=== PATIENT | female | born 1985 | race African-American/Black ===

== ENCOUNTER 2016-12-12 06:29 | Emergency (ER) | payer OTHER ==
[2016-12-12 06:53] VITALS: BMI 16.2
--- NOTE | 2016-12-12 08:05 | PDOC ---
History of Present Illness - General Chief Complaint: Cold Symptoms Stated Complaint: FEVER Time Seen by Provider: 12/12/16 07:42 History Source: Patient Exam Limitations: No Limitations - History of Present Illness Initial Comments: CHIEF COMPLAINT: 31 y/o afebrile female with PMH asthma c/o "not feeling well". HISTORY OF PRESENT ILLNESS: The patient just came from [facility] where she was told she had a 104 fever, was given nothing for fever, and was provided with HIV screening paperwork in the waiting room so she left and came here. She is under the impression they tested her for HIV at [facility] although she admits she was not swabbed for anything. She states she felt very warm this morning, although she does not have a fever here. She states she's had a decreased appetite for the past few days, with very mild cough and runny nose. She denies HUIZAR, neck pain, n/v/d, CP, SOB, abd pain, back pain, hematuria, dysuria. The patient had the flu shot in August and denies sick contacts. She does admit to having Pneumonia at the end of September, for which she was admitted to [facility]. Vital signs on arrival are notable for pulse of 118. REVIEW OF SYSTEMS: GENERAL/CONSTITUTIONAL: Subjective fever/chills. No weakness. No weight change. HEAD, EYES, EARS, NOSE AND THROAT: No change in vision. No ear pain or discharge. No sore throat. +slight runny nose. CARDIOVASCULAR: No chest pain or shortness of breath. RESPIRATORY: +dry cough. No wheezing, or hemoptysis. GASTROINTESTINAL: No nausea, vomiting, diarrhea. GENITOURINARY: No dysuria, frequency, or change in urination. MUSCULOSKELETAL: No joint or muscle swelling or pain. No neck or back pain. SKIN: No rash or easy bruising. NEUROLOGIC: No headache, vertigo, loss of consciousness, or loss of sensation. PHYSICAL EXAM: GENERAL: The patient is awake, alert, and fully oriented, in no acute distress. She is very well appearing, ambulatory, in NAD or obvious discomfort. No cough appreciated throughout H&P. HEAD: Normal with no signs of trauma. ENT: Pupils equal, round and reactive to light, extraocular movements intact, sclera anicteric, conjunctiva clear. Neck supple. LUNGS: Clear to auscultation bilaterally. Normal excursion. No respiratory distress or use of accessory muscles. CV: RRR, S1/S2, no MRG. Cap refill < 2 sec. ABDOMEN: Soft, non-distended, non-tender even to deep palpation, no hepatomegaly or splenomegaly, no masses. EXTREMITIES: Normal range of motion, no edema. NEUROLOGICAL: Normal speech, normal gait. CN II-XII grossly intact. PSYCH: Normal mood, normal affect. SKIN: Warm, dry, normal turgor, no rashes or lesions noted. Past History - Past Medical History Allergies/Adverse Reactions: Allergies Allergy/AdvReac Type Severity Reaction Status Date / Time No Known Allergies Allergy Verified 12/12/16 06:47 Home Medications: Ambulatory Orders Fluoxetine HCl [Prozac] 20 mg PO AM 10/18/16 Asthma: Yes Psychiatric Problems: Yes (Depression) - Psycho/Social/Smoking Cessation Hx Suicidal Ideation: No Smoking History: Former smoker Have you smoked in the past 12 months: No Number of Cigarettes Smoked Daily: 5 Information on smoking cessation initiated: No Hx Alcohol Use: No Drug/Substance Use Hx: Yes (marjuana) Substance Use Type: None *Physical Exam - Vital Signs Last Vital Signs Temp Pulse Resp BP Pulse Ox 99.1 F 118 H 12 146/105 100 12/12/16 06:48 12/12/16 06:48 12/12/16 06:48 12/12/16 06:48 12/12/16 06:48 Medical Decision Making - Medical Decision Making A/P: 31 y/o female who states she "doesn't feel well" and wants HIV test. Plan is as follows: 1. UA/hcg/tox 2. CXR 3. HIV 4. Ibuprofen CXR IMPRESSION: No active disease in the chest. U tox positive for marijuana and PCP HIV negative Gave patient her results. Will discharge to home with supportive care instructions. The patient verbalizes understanding of all instructions, has no further questions and is awaiting discharge. *DC/Admit/Observation/Transfer Diagnosis at time of Disposition: Encounter for screening examination for sexually transmitted disease, Worried well - Discharge Dispostion Disposition: HOME Condition at time of disposition: Good - Referrals Referrals: Elo Cheney [Primary Care Provider] - - Patient Instructions Additional Instructions: Discharge Instructions: -Your HIV test was negative -Please follow up with your regular doctor if symptoms persist -Return to the ER with any worsening or concerning symptoms.
[2016-12-12 09:00] LABS: URINE APPEARANCE CLEAR; URINE BILIRUBIN NEGATIVE (NEGATIVE); URINE COLOR YELLOW; URINE GLUCOSE (UA) NEGATIVE (NEGATIVE); URINE KETONE TRACE (NEGATIVE); URINE LEUK ESTERASE NEGATIVE (NEGATIVE); URINE NITRITE NEGATIVE (NEGATIVE); URINE UROBILINOGEN 2.0 E.U/dl E.U./dl (0.2-1.0)
[2016-12-12 09:07] LABS: URINE MARIJUANA THC POSITIVE ng/ml (CUTOFF=50)
[2016-12-12 09:08] LABS: URINE BLOOD 3+ (NEGATIVE); URINE PROTEIN 2+ (NEGATIVE)
[2016-12-12] MEDS ORDERED: IBUPROFEN 600 MG TABLET (FP) PO ONE ×2 (09:08→09:11)
[2016-12-12 09:11] LABS: URINE MUCUS MANY; URINE RBC 304 /hpf (0-3); URINE WBC 12 /hpf (3-5)
[2016-12-12 09:49] LABS: HIV 1 & 2 AB NEGATIVE; HIV 1 AGp24 NEGATIVE
[2016-12-12 10:29] VITALS: BP 128/78; PULSE 89; TEMP 98.7
== END 2016-12-12 10:28 | disposition home or self-care (01) ==
LOC: JER 06:29
DX: Z11.3 Encounter for screening for infections with a predominantly sexual mode of transmission (principal); Z71.1 Person with feared health complaint in whom no diagnosis is made; Z87.891 Personal history of nicotine dependence
CPT/HCPCS: 36415; 71020-TC; 80307; 81003; 81015; 84703; 87389; 99281-25

== ENCOUNTER 2017-02-08 15:15 | Observation (INO) | payer OTHER ==
[2017-02-08 15:36] VITALS: BMI 21.2
--- NOTE | 2017-02-08 16:22 | PDOC ---
History of Present Illness - General History Source: Patient - History of Present Illness Associated Symptoms: denies: chest pain, diaphoresis, fever/chills, nausea/ vomiting, shortness of breath, weakness <Jason Alfaro - Last Filed: 02/09/17 15:19> <Marisabel Poon - Last Filed: 02/11/17 07:27> - General Chief Complaint: Psychiatric Stated Complaint: PSYCHIATRIC Time Seen by Provider: 02/08/17 15:51 Past History - Past Medical History Asthma: Yes Psychiatric Problems: Yes (Depression/ Bipolar/ PSTD) - Immunization History Immunization Up to Date: Yes - Psycho/Social/Smoking Cessation Hx Suicidal Ideation: No Smoking History: Current every day smoker Have you smoked in the past 12 months: No Number of Cigarettes Smoked Daily: 10 Information on smoking cessation initiated: No Hx Alcohol Use: No Drug/Substance Use Hx: No Substance Use Type: None <Jason Alfaro - Last Filed: 02/09/17 15:19> <Marisabel Poon - Last Filed: 02/11/17 07:27> - Past Medical History Allergies/Adverse Reactions: Allergies Allergy/AdvReac Type Severity Reaction Status Date / Time No Known Allergies Allergy Verified 02/08/17 15:26 Home Medications: Ambulatory Orders Fluoxetine HCl [Prozac] 20 mg PO AM 10/18/16 Cyclobenzaprine HCl [Flexeril 10 mg] 10 mg PO HS 02/08/17 Quetiapine Fumarate [Seroquel] 300 mg PO HS 02/08/17 Review of Systems - Review of Systems Constitutional: No: Chills, Fever Respiratory: No: Shortness of Breath Cardiac (ROS): No: Chest Pain, Lightheadedness, Palpitations ABD/GI: No: Nausea, Vomiting, Abdominal cramping Neurological: No: Headache, Dizziness <Jason Alfaro - Last Filed: 02/09/17 15:19> *Physical Exam - Vital Signs Last Vital Signs Temp Pulse Resp BP Pulse Ox 98.2 F 131 H 22 131/88 98 02/08/17 15:27 02/08/17 15:27 02/08/17 15:27 02/08/17 15:27 02/08/17 15:27 - Physical Exam General Appearance: Yes: Appropriately Dressed, Other (appears mildly anxious) HEENT: positive: Normal Voice Neck: positive: Supple Respiratory/Chest: positive: Lungs Clear, Normal Breath Sounds. negative: Respiratory Distress Cardiovascular: positive: S1, S2, Tachycardia Gastrointestinal/Abdominal: positive: Soft Integumentary: positive: Dry, Warm Neurologic: positive: Fully Oriented, Alert, Other (appears anxious) <Paula AlfaroDreYudith - Last Filed: 02/09/17 15:19> - Vital Signs Last Vital Signs Temp Pulse Resp BP Pulse Ox 99 F 85 18 116/71 99 02/10/17 15:27 02/10/17 15:27 02/10/17 18:00 02/10/17 14:00 02/09/17 19:35 <Marisabel Poon - Last Filed: 02/11/17 07:27> Heart Score/ECG Review - ECG Intrepretation Comment:: 02/08/17 18:28 Twelve-lead EKG was performed and reviewed by me. There is normal sinus rhythm with a normal rate. The axis is normal. The intervals are normal. There are no ST or T wave abnormalities. Impression: Normal twelve-lead EKG <AngelinaPaula-Yudith - Last Filed: 02/09/17 15:19> ED Treatment Course - LABORATORY CBC & Chemistry Diagram: 02/08/17 16:20 02/08/17 16:20 <Paula AlfaroDreYudith - Last Filed: 02/09/17 15:19> - LABORATORY CBC & Chemistry Diagram: 02/08/17 16:20 02/08/17 16:20 - ADDITIONAL ORDERS Additional order review: 02/08/17 16:20 RBC 4.34 MCV 86.7 MCHC 32.8 RDW 14.2 MPV 8.3 Neutrophils % 51.1 D Lymphocytes % 39.3 D Monocytes % 8.3 D Eosinophils % 0.7 D Basophils % 0.6 - Medications Given in the ED: ED Medications Discontinued Medications Generic Name Dose Route Start Last Admin Trade Name Freq PRN Reason Stop Dose Admin Cyclobenzaprine HCl 10 mg 02/09/17 22:00 02/10/17 18:26 Flexeril - PO 10 mg HS REBECCA Administration Fluoxetine HCl 20 mg 02/09/17 09:57 02/09/17 10:17 Prozac - PO 02/09/17 09:58 Not Given ONCE ONE Fluoxetine HCl 20 mg 02/10/17 07:00 02/10/17 08:27 Prozac - PO 20 mg AM REBECCA Administration Heparin Sodium (Porcine) 5,000 unit 02/09/17 22:00 02/10/17 10:48 Heparin - SQ 5,000 unit BID REBECCA Administration Sodium Chloride 1,000 mls @ 1,000 mls/hr 02/08/17 16:23 02/08/17 16:48 Normal Saline - IV 02/08/17 17:22 1,000 mls/hr ASDIR STA Administration Ibuprofen 600 mg 02/10/17 14:38 02/10/17 14:50 Motrin - PO 02/10/17 14:39 600 mg ONCE ONE Administration Nicotine 14 mg 02/08/17 19:15 02/10/17 10:48 Nicoderm Patch - TD 14 mg DAILY REBECCA Administration Quetiapine Fumarate 300 mg 02/09/17 09:58 02/09/17 10:18 Seroquel - PO 02/09/17 09:59 Not Given ONCE ONE Quetiapine Fumarate 300 mg 02/09/17 22:00 02/09/17 21:50 Seroquel - PO 300 mg HS REBECCA Administration <Marisabel Poon - Last Filed: 02/11/17 07:27> Medical Decision Making - Medical Decision Making 02/08/17 16:15 31 yo F, h/o PTSD, depression, bipolar on meds, does not currently have a psychiatrist as per pt, s/p psych [facility] , p/w auditory hallucination x ~1 month. States voices are telling her to take all her medications. States sxs worsened today. Denies any attempt since recent admission. Has a cousin who committed suicide 2 years ago See exam 31 yo F, p/w auditory hallucinations telling pt to hurt herself High risk as multiple psych d/o w/ recent admission for suicidal attempt and + fmhx of suicide Mildly tachy at triage which self resolved, appears anxious, exam unremarkable otherwise -1:1 observation -labs including tox screen -psych c/s -anticipate admission 02/08/17 16:56 Psych aware and states will come see pt 02/08/17 17:29 Dr Rhodes now at bedside 02/08/17 17:[address] Rhodes who evaluated pt and recommended pt be discharged to report to Health system if she wishes to be admitted to in-pt psych. Pt however verbalized that she is afraid of being discharged and does not feel safe. Currently crying in ED. Based on my assessment of this pt being a high risk for harming herself, I, alongside my attg, decided to transfer pt to [facility] for further assessment by psych and m/l admission. 02/08/17 18:02 02/08/17 18:29 02/09/17 07:20 Pt signed out to me this am as transfer overnight unsuccessful as both [facility] and [facility] have no inpt psych beds available. Will contact briefcase sewer to assist in placing pt 02/09/17 09:31 02/09/17 10:15 Pt given dose of her own prozac and flexeril this am 02/09/17 14:18 02/09/17 15:19 After several hrs of attempting to find an available bed in an inpatient psych facility as per briefcase sewer, no beds available. Recommends admitting patient to observation at this time while team continue to find placement. Dr. Hopson aware and patient admitted to observation <Jason Alfaro - Last Filed: 02/09/17 15:19> *DC/Admit/Observation/Transfer - Discharge Dispostion Admit: Yes <Jason Alfaro - Last Filed: 02/09/17 15:19> - Attestations Physician Attestion: I reviewed the case with the mid-level practitioner and agree with the mid- level practitioner's assessment, diagnosis and disposition. <Marisabel Poon - Last Filed: 02/11/17 07:27> Diagnosis at time of Disposition: Suicide ideation, Auditory hallucination - Discharge Dispostion Disposition: [facility] Condition at time of disposition: Good - Referrals - Patient Instructions - Post Discharge Activity
[2017-02-08] MEDS ORDERED: SODIUM CHLORIDE 1,000 ML IV STA (16:23)
[2017-02-08 16:31] LABS: BASOPHIL 0.6 % (0-2.0); EOSINOPHIL 0.7 % (0-4.5); MCH 28.4 pg (25.7-33.7); MCHC 32.8 g/dl (32.0-36.0); MEAN CELL VOLUME 86.7 fl (80-96); MEAN PLT VOLUME 8.3 fl (7.5-11.1); NEUTROPHILS 51.1 % (42.8-82.8); PLATELET COUNT 230 K/MM3 (134-434); RDW 14.2 % (11.6-15.6); WHITE BLOOD COUNT 4.6 K/mm3 (4.0-10.0)
[2017-02-08 16:54] LABS: URINE APPEARANCE CLEAR; URINE BILIRUBIN NEGATIVE (NEGATIVE); URINE BLOOD NEGATIVE (NEGATIVE); URINE COLOR LTYELLOW; URINE GLUCOSE (UA) NEGATIVE (NEGATIVE); URINE KETONE NEGATIVE (NEGATIVE); URINE LEUK ESTERASE NEGATIVE (NEGATIVE); URINE NITRITE NEGATIVE (NEGATIVE); URINE PROTEIN NEGATIVE (NEGATIVE); URINE UROBILINOGEN NEGATIVE E.U./dl (0.2-1.0)
[2017-02-08 17:06] LABS: ALBUMIN 4.1 g/dl (3.4-5.0); ANION GAP 8 (8-16); BILIRUBIN,TOTAL 0.5 mg/dL (0.2-1.0); CALCIUM 8.9 mg/dL (8.5-10.1); CO2 31 mmol/L (21-32); CREATININE 0.7 mg/dL (0.55-1.02); GLUCOSE,RANDOM 101 mg/dL (74-106); SGOT/AST 10 U/L (15-37); SGPT/ALT 20 U/L (12-78)
[2017-02-08 17:07] LABS: ALK PHOS 62 U/L (45-117); TOT PROT 7.1 g/dl (6.4-8.2)
[2017-02-08 17:12] LABS: URINE MARIJUANA THC POSITIVE ng/ml (CUTOFF=50)
--- NOTE | 2017-02-08 17:45 | CON.PSY ---
Psychiatry Consult Chief Complaint: Patient came to ER complining about Hearing voices. she was admitted to psych at [facility] about a month ago. Seen her Psych at [facility] about a week ago. Urine positive for Marijuana and pcp.Patient does not want to go back to her apartment in [place],. She lived in the [place] before. Symptoms: reports: Hallucinations - Previous Psychiatric Treatment Outpatient: Less than 6 mos ago Inpatient: Within the last 12 months - Previous Substance Abuse Treatment Outpatient: None - Reason for Previous Treatment Reason for Previous Treatment: Psychotic Episode, Marijuana, Other Drugs - Allergies Allergies: Allergies Allergy/AdvReac Type Severity Reaction Status Date / Time No Known Allergies Allergy Verified 02/08/17 15:26 - Current Living Status Usual Living Arrangement: Alone - Current Mental Status Evaluation Appearance: Well Groomed Attitude: Cooperative - Affect Affect: Constrictive Appropriateness: Appropriate to Content - Mood Mood: Other - Speech/Language Expressive: Coherent Receptive: Age Appropriate Comprehension of Spoken Words - Psychomotor Activity Psychomotor Activity: Normal - Thought Process Thought Process: Intact - Thought Content Hallucinations: Present Type: Auditory Delusions: Absent - Self Perception Self Perception: No Impairment - Cognition Attention: Alert Orientation: Time Memory, Immediate Recall: Intact Memory, Short Term: 3/3 - Concentration Serial Sevens Intact: No Simple Calculations Intact: No - Abstraction Proverb Interpretation: Intact Judgement: Minimally Impaired - Insight Insight: Intact - Impulse Control Impulse Control: Minimally Impaired - Suicidal Ideation Suicidal Ideation: No - Homicidal Ideation Homicidal Ideation: No Assessment/Plan 1) Discharge patient from ER. 2) Return to [facility] for follow up. Patient is being treated there in OP department.
[2017-02-08] MEDS: NICOTINE 14 MG/24 HOURS TOPICAL PATCH TD SCH (20:00)
--- NOTE | 2017-02-08 20:57 | PDOC ---
*Physical Exam - Vital Signs Last Vital Signs Temp Pulse Resp BP Pulse Ox 98.2 F 98 H 19 131/88 100 02/08/17 15:27 02/08/17 17:00 02/08/17 17:00 02/08/17 15:27 02/08/17 17:00 ED Treatment Course - LABORATORY CBC & Chemistry Diagram: 02/08/17 16:20 02/08/17 16:20 - ADDITIONAL ORDERS Additional order review: Laboratory Results 02/08/17 02/08/17 02/08/17 16:30 16:20 16:20 Sodium Potassium Chloride Carbon Dioxide Anion Gap BUN Creatinine Creat Clearance w eGFR Random Glucose Calcium Total Bilirubin AST ALT Alkaline Phosphatase Total Protein Albumin Urine Color Ltyellow Urine Appearance Clear Urine pH 6.0 Ur Specific [place] 1.006 Urine Protein Negative Urine Glucose (UA) Negative Urine Ketones Negative Urine Blood Negative Urine Nitrite Negative Urine Bilirubin Negative Urine Urobilinogen Negative Ur Leukocyte Esterase Negative Salicylates < 4.0 Opiates Screen Methadone Screen Acetaminophen < 2.000 L Barbiturate Screen Phencyclidine Screen Ur Amphetamines Screen MDMA (Ecstasy) Screen Benzodiazepines Screen Cocaine Screen U Marijuana (THC) Screen 02/08/17 02/08/17 16:20 16:08 Sodium 140 Potassium 3.8 Chloride 101 Carbon Dioxide 31 D Anion Gap 8 BUN 7 D Creatinine 0.7 Creat Clearance w eGFR > 60 Random Glucose 101 Calcium 8.9 Total Bilirubin 0.5 D AST 10 L D ALT 20 D Alkaline Phosphatase 62 Total Protein 7.1 Albumin 4.1 Urine Color Urine Appearance Urine pH Ur Specific [place] Urine Protein Urine Glucose (UA) Urine Ketones Urine Blood Urine Nitrite Urine Bilirubin Urine Urobilinogen Ur Leukocyte Esterase Salicylates Opiates Screen Negative Methadone Screen Negative Acetaminophen Barbiturate Screen Negative Phencyclidine Screen Positive Ur Amphetamines Screen Negative MDMA (Ecstasy) Screen Negative Benzodiazepines Screen Negative Cocaine Screen Negative U Marijuana (THC) Screen Positive 02/08/17 16:20 RBC 4.34 MCV 86.7 MCHC 32.8 RDW 14.2 MPV 8.3 Neutrophils % 51.1 D Lymphocytes % 39.3 D Monocytes % 8.3 D Eosinophils % 0.7 D Basophils % 0.6 - Medications Given in the ED: ED Medications Discontinued Medications Generic Name Dose Route Start Last Admin Trade Name Freq PRN Reason Stop Dose Admin Sodium Chloride 1,000 mls @ 1,000 mls/hr 02/08/17 16:23 02/08/17 16:48 Normal Saline - IV 02/08/17 17:22 1,000 mls/hr ASDIR STA Administration Progress Note - Progress Note Progress Note: 2056hrs: 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 center; reports NO beds 0700hrs: Signed out to EKTA Alfaro *DC/Admit/Observation/Transfer Diagnosis at time of Disposition: Suicide ideation, Auditory hallucination - Discharge Dispostion Disposition: [facility] F[facility] Condition at time of disposition: Good - Referrals - Patient Instructions - Post Discharge Activity
[2017-02-09] MEDS ORDERED: FLUoxetine HCL 20 MG CAPSULE (FP) PO ONE (09:57)
[2017-02-09] MEDS ORDERED: QUEtiapine FUMARATE 300 MG TABLET PO ONE (09:58)
--- NOTE | 2017-02-09 14:24 | EKG ---
Test Reason : Blood Pressure : / mmHG Vent. Rate : 098 BPM Atrial Rate : 098 BPM P-R Int : 108 ms QRS Dur : 092 ms QT Int : 336 ms P-R-T Axes : 076 046 051 degrees QTc Int : 428 ms SINUS RHYTHM WITH SHORT WV RSR' OR QR PATTERN IN V1 SUGGESTS RIGHT VENTRICULAR CONDUCTION DELAY BORDERLINE ECG NO PREVIOUS ECGS AVAILABLE CLINICAL CORRELATION IS RECOMMENDED Confirmed by RIGO WINTERS, JENNIE ([id number]) on 02/09/2017 2:24:19 PM Referred By: Confirmed By:JENNIE SIERRA MD
--- NOTE | 2017-02-09 15:58 | HP ---
[id number] h/o PTSD, bipolar, asthma, using daily MJA presents not feeling safe at home. Patient was admitted to [facility] a week ago for reported suicide attempt - taking multiple pills. Patient does not recall event. She smokes daily MJA including this week. The day prior to presentation she becam anxious and did not feel safe at home. She has hallucinations constantly that have never been controlled with medications. Hallcuinations give her commands to hurt herself and persecutory that people are coming for her. Current stressors include being in a custody lewis for her son and being on probation. She denies SI/HI in this moment, but does not want to go home where she would be alone. ER course was notable for: (1) seen by psych cleared (2) continued to not feel safe - 2 PC'd by ED Recent Travel: PAST MEDICAL/Surgical HISTORY: as above Social History: Smoking: yes Alcohol: yes Drugs: MJA Family History: Allergies No Known Allergies Allergy (Verified 02/08/17 15:26) HOME MEDICATIONS: Home Medications Medication Instructions Recorded Fluoxetine HCl [Prozac] 20 mg PO AM 10/18/16 Cyclobenzaprine HCl [Flexeril 10 10 mg PO HS 02/08/17 mg] Quetiapine Fumarate [Seroquel] 300 mg PO HS 02/08/17 REVIEW OF SYSTEMS CONSTITUTIONAL: Absent: fever, chills, diaphoresis, generalized weakness, malaise, loss of appetite, weight change HEENT: Absent: rhinorrhea, nasal congestion, throat pain, throat swelling, difficulty swallowing, mouth swelling, ear pain, eye pain, visual changes CARDIOVASCULAR: Absent: chest pain, syncope, palpitations, irregular heart rate, lightheadedness , peripheral edema RESPIRATORY: Absent: cough, shortness of breath, dyspnea with exertion, orthopnea, wheezing, stridor, hemoptysis GASTROINTESTINAL: Absent: abdominal pain, abdominal distension, nausea, vomiting, diarrhea, constipation, melena, hematochezia GENITOURINARY: Absent: dysuria, frequency, urgency, hesitancy, hematuria, flank pain, genital pain MUSCULOSKELETAL: Absent: myalgia, arthralgia, joint swelling, back pain, neck pain SKIN: Absent: rash, itching, pallor HEMATOLOGIC/IMMUNOLOGIC: Absent: easy bleeding, easy bruising, lymphadenopathy, frequent infections ENDOCRINE: Absent: unexplained weight gain, unexplained weight loss, heat intolerance, cold intolerance NEUROLOGIC: Absent: headache, focal weakness or paresthesias, dizziness, unsteady gait, seizure, mental status changes, bladder or bowel incontinence PSYCHIATRIC: as above PHYSICAL EXAMINATION Vital Signs - 24 hr 02/08/17 02/08/17 02/09/17 17:00 22:00 06:47 Temperature 97.9 F Pulse Rate [ 98 H 92 H 74 Apical] Respiratory 19 18 14 Rate Blood Pressure 114/77 117/80 [Left Arm] O2 Sat by Pulse 100 100 97 Oximetry (%) 02/09/17 02/09/17 07:30 11:00 Temperature 98.6 F Pulse Rate [ 78 Apical] Respiratory 18 Rate Blood Pressure 120/74 [Left Arm] O2 Sat by Pulse 98 100 Oximetry (%) GENERAL: Awake, alert, and fully oriented, in no acute distress. HEAD: Normal with no signs of trauma. EYES: Pupils equal, round and reactive to light, extraocular movements intact, sclera anicteric, conjunctiva clear. No lid lag. EARS, NOSE, THROAT: Ears normal, nares patent, oropharynx clear without exudates. Moist mucous membranes. NECK: Normal range of motion, supple without lymphadenopathy, JVD, or masses. LUNGS: Breath sounds equal, clear to auscultation bilaterally. No wheezes, and no crackles. No accessory muscle use. HEART: Regular rate and rhythm, normal S1 and S2 without murmur, rub or gallop. ABDOMEN: Soft, nontender, not distended, normoactive bowel sounds, no guarding, no rebound, no masses. No hepatomegaly or splenomegaly. MUSCULOSKELETAL: Normal range of motion at all joints. No bony deformities or tenderness. No CVA tenderness. UPPER EXTREMITIES: 2+ pulses, warm, well-perfused. No cyanosis. No clubbing. No peripheral edema. LOWER EXTREMITIES: 2+ pulses, warm, well-perfused. No calf tenderness. No peripheral edema. NEUROLOGICAL: Cranial nerves II-XII intact. Normal speech. Normal gait. PSYCHIATRIC: Cooperative. Good eye contact. Appropriate mood and affect. SKIN: Warm, dry, normal turgor, no rashes or lesions noted, normal capillary refill. Laboratory Results - last 24 hr 02/08/17 02/08/17 02/08/17 16:08 16:20 16:20 WBC 4.6 D RBC 4.34 Hgb 12.3 Hct 37.6 MCV 86.7 MCHC 32.8 RDW 14.2 Plt Count 230 MPV 8.3 Neutrophils % 51.1 D Lymphocytes % 39.3 D Monocytes % 8.3 D Eosinophils % 0.7 D Basophils % 0.6 Sodium 140 Potassium 3.8 Chloride 101 Carbon Dioxide 31 D Anion Gap 8 BUN 7 D Creatinine 0.7 Creat Clearance w eGFR > 60 Random Glucose 101 Calcium 8.9 Total Bilirubin 0.5 D AST 10 L D ALT 20 D Alkaline Phosphatase 62 Total Protein 7.1 Albumin 4.1 Urine Color Urine Appearance Urine pH Ur Specific [place] Urine Protein Urine Glucose (UA) Urine Ketones Urine Blood Urine Nitrite Urine Bilirubin Urine Urobilinogen Ur Leukocyte Esterase Salicylates Opiates Screen Negative Methadone Screen Negative Acetaminophen Barbiturate Screen Negative Phencyclidine Screen Positive Ur Amphetamines Screen Negative MDMA (Ecstasy) Screen Negative Benzodiazepines Screen Negative Cocaine Screen Negative U Marijuana (THC) Screen Positive 02/08/17 02/08/17 02/08/17 16:20 16:20 16:30 WBC RBC Hgb Hct MCV MCHC RDW Plt Count MPV Neutrophils % Lymphocytes % Monocytes % Eosinophils % Basophils % Sodium Potassium Chloride Carbon Dioxide Anion Gap BUN Creatinine Creat Clearance w eGFR Random Glucose Calcium Total Bilirubin AST ALT Alkaline Phosphatase Total Protein Albumin Urine Color Ltyellow Urine Appearance Clear Urine pH 6.0 Ur Specific [place] 1.006 Urine Protein Negative Urine Glucose (UA) Negative Urine Ketones Negative Urine Blood Negative Urine Nitrite Negative Urine Bilirubin Negative Urine Urobilinogen Negative Ur Leukocyte Esterase Negative Salicylates < 4.0 Opiates Screen Methadone Screen Acetaminophen < 2.000 L Barbiturate Screen Phencyclidine Screen Ur Amphetamines Screen MDMA (Ecstasy) Screen Benzodiazepines Screen Cocaine Screen U Marijuana (THC) Screen ASSESSMENT/PLAN: 31 yo F with h/o PTSD, bipolar, asthma, using daily MJA presents not feeling safe at home, having command hallucinations that are not controlled on her current medication regimen. She would like to go to inpatient psych. Bipolar with psychotic features: - continue seroquel - continue prozac - inpatient psych PSA: - counseled asthma: -albuterol prn Visit type - Emergency Visit Emergency Visit: Yes ED Registration Date: 02/09/17 Care time: The patient presented to the Emergency Department on the above date and was hospitalized for further evaluation of their emergent condition. - New Patient This patient is new to me today: Yes Date on this admission: 02/23/17 - Critical Care Critical Care patient: No
[2017-02-09] MEDS: NICOTINE 14 MG/24 HOURS TOPICAL PATCH TD SCH (18:26)
[2017-02-09] MEDS: HEPARIN NA (PORCINE) 5,000 UNITS/ML 1ML VIAL SQ SCH ×2 (21:50→21:54)
[2017-02-09] MEDS: CYCLOBENZAPRINE HCL 10 MG TABLET (FP) PO SCH (21:51)
[2017-02-09] MEDS ORDERED: QUEtiapine FUMARATE 100 MG TABLET (FP) PO SCH (22:00)
[2017-02-10] MEDS: FLUoxetine HCL 20 MG CAPSULE (FP) PO SCH ×2 (06:23→08:27)
[2017-02-10] MEDS: HEPARIN NA (PORCINE) 5,000 UNITS/ML 1ML VIAL SQ SCH (10:48)
[2017-02-10] MEDS: NICOTINE 14 MG/24 HOURS TOPICAL PATCH TD SCH (10:48)
--- NOTE | 2017-02-10 11:50 | PN ---
Progress Note (short form) - Note Progress Note: Patient was admitted from ER, Patient came in intoxicated and complained of feeling depressed. Kept telling ER staff that she wanted to kill herself. she was placed on 1:1. MS: alert, oriented, denies any concrete suicidal plans at this time. patient does not want to return to her apartment . Plan: D/C 1:1 2)She can go to [facility] if they are willing to accept her as a Voluntary admission.
--- NOTE | 2017-02-10 12:57 | DS ---
Physical Exam: SUBJECTIVE: Patient seen and examined. She was laying in the bed in no acute distress. 1:[address] Abdullahi OBJECTIVE: Patient appears comfortable in bed, cooperative. notes reviewed Cleared by psych to be d/c Vital Signs Period Temp Pulse Resp BP Sys/Sheppard Pulse Ox Last 24 Hr 97.8 F-98.8 F 72-93 16-20 109-117/64-81 99-100 PHYSICAL EXAM GENERAL: The patient is awake, alert, and fully oriented, in no acute distress. HEAD: Normal with no signs of trauma. EYES: PERRL, extraocular movements intact, sclera anicteric, conjunctiva clear. ENT: Ears normal, nares patent, oropharynx clear without exudates, moist mucous membranes. NECK: Trachea midline, full range of motion, supple. LUNGS: Breath sounds equal, clear to auscultation bilaterally HEART: Regular rate and rhythm NEUROLOGICAL: Normal speech, gait not observed. PSYCH: Normal mood, normal affect. SKIN: Warm, dry, normal turgor, no rashes or lesions noted. LABS HOSPITAL COURSE: Date of Admission:02/09/17 Date of Discharge: 02/10/17 Patient is a 31 year old female with a significant past medical history of PTSD , bipolar disorder and asthma. She presents to the ER on 02/09/2017 stating that she is not feeling safe at home, she is having hallucinations and and asking to go to inpatient psych. In ER she was admitted for inpatient monitoring after complaining of feeling depressed and telling the ER staff that she wanted to kill herself. As per psyche, pt denies concrete suicidal plans at this time and the 1:1 was discontinued. Discharge planning to [facility] as a voluntary admission. Psych: Bipolar with psychotic features - outpatient monitoring Assessment/Plan: On Seroquel, Prozac 1:1 monitoring discontinued by psyche Pt to be d/c to [facility] as a voluntary admission Pulmonary: Asthma - not in exacerbation Assessment/Plan: tolerating room air Disposition: Voluntary admission to [facility] pending. Full Code. Minutes to complete discharge: 45 Discharge Summary Reason For Visit: SUICIDE IDEATION/ AUDITORY HALLUCINATIONS Current Active Problems Auditory hallucination (Acute) Suicide ideation (Acute) Condition: Good - Instructions Diet, Activity, Other Instructions: Discharge to [facility] as a voluntary admission. Please continue your medications as prescribed. Referrals: Elo Cheney [Primary Care Provider] - Disposition: LONGTERM FACILITY - Home Medications Comprehensive Discharge Medication List: Ambulatory Orders Fluoxetine HCl [Prozac] 20 mg PO AM 10/18/16 Cyclobenzaprine HCl [Flexeril 10 mg] 10 mg PO HS 02/08/17 Quetiapine Fumarate [Seroquel] 300 mg PO HS 02/08/17 This patient is new to me today: Yes Date on this admission: 02/10/17 Emergency Visit: Yes ED Registration Date: 02/09/17 Care time: The patient presented to the Emergency Department on the above date and was hospitalized for further evaluation of their emergent condition. Critical Care patient: No - Discharge Referral Referred to [facility] No
[2017-02-10 14:27] VITALS: BP 116/71; PULSE 85; TEMP 99
[2017-02-10] MEDS ORDERED: IBUPROFEN 600 MG TABLET (FP) PO ONE (14:38)
[2017-02-10] MEDS: CYCLOBENZAPRINE HCL 10 MG TABLET (FP) PO SCH (18:26)
== END 2017-02-10 18:55 ==
LOC: JER 15:15 → INTOOBSV 02-09 14:31 → JERBED 02-09 14:31 → UNDOADMIN 02-09 15:31 → J6S 02-09 20:19
PROVIDERS: ADMIT Internal Medicine; ATTEND Nurse Practitioner Family
PROC: 3E013GC Introduction of Other Therapeutic Substance into Subcutaneous Tissue, Percutaneous Approach (ICD-10-PCS; principal; 2017-02-09)
PROC: 3E0337Z Introduction of Electrolytic and Water Balance Substance into Peripheral Vein, Percutaneous Approach (ICD-10-PCS; 2017-02-09)
DX: R45.851 Suicidal ideations (principal); R44.0 Auditory hallucinations; F31.5 Bipolar disorder, current episode depressed, severe, with psychotic features; F32.9 Major depressive disorder, single episode, unspecified; F43.10 Post-traumatic stress disorder, unspecified; F17.210 Nicotine dependence, cigarettes, uncomplicated; J45.909 Unspecified asthma, uncomplicated
CPT/HCPCS: 36415; 80053; 80307; 81003; 85025; 93005; 93010; 99285-25; G0378; J1644

== ENCOUNTER 2017-07-01 10:52 | Inpatient (IN) | payer OTHER ==
[2017-07-01 11:30] VITALS: BMI 20.2
--- NOTE | 2017-07-01 15:06 | HP ---
Admission ROS [facility] Chief Complaint: REHAB TX FOR PCP AND MARIJUANA DEPENDENCE. Allergies/Adverse Reactions: Allergies Allergy/AdvReac Type Severity Reaction Status Date / Time No Known Allergies Allergy Verified 02/08/17 15:26 History of Present Illness: 31 Y/O AA/FEMALE WITH A HX OF PCP AND MARIJUANA DEPENDENCE SEEKING REHAB TX. Exam Limitations: No Limitations - Ebola screening Have you traveled outside of the country in the last 21 days: No Have you had contact with anyone from an Ebola affected area: No Have you been sick,other than usual withdrawal symptoms: No Do you have a fever: No - Review of Systems Constitutional: Chills, Loss of Appetite, Night Sweats, Changes in sleep, Unintentional Wgt. Loss EENT: reports: Blurred Vision (WEARS GLASSES), Tearing, Nose Congestion Respiratory: reports: Shortness of Breath (HX ASTHMA), Wheezing Cardiac: reports: Lightheadedness GI: reports: Diarrhea, Poor Appetite, Poor Fluid Intake : reports: Frequency Musculoskeletal: reports: Back Pain (CHRONIC LBP) Integumentary: reports: No Symptoms Reported Neuro: reports: Headache, Dizziness Endocrine: reports: No Symptoms Reported Hematology: reports: Anemia Psychiatric: reports: Orientated x3, Anxious, Depressed Other Systems: Reviewed and Negative Patient History - Patient Medical History Hx Anemia: Yes (NO MEDS) Hx Asthma: Yes (MDI) Hx Cardiac Disorders: No Hx Hypertension: No Hx Hypercholesterolemia: No HX Cerebrovascular Accident: No Hx Seizures: No Hx Diabetes: No Hx Gastrointestinal Disorders: No Hx Genitourinary Disorders: No Hx Sexually Transmitted Disorders: No Hx Renal Disease (ESRD): No Hx Thyroid Disease: No Hx Human Immunodeficiency Virus (HIV): No (NEGATIVE HX) Hx Hepatitis C: No Hx Depression: Yes (ON MED) Hx Suicide Attempt: Yes (OD ON PILLS IN01/2017;DENIES CURRENT S/H IDEATIONS.) Hx Bipolar Disorder: No Hx Schizophrenia: Yes - Patient Surgical History Past Surgical History: Yes Hx Neurologic Surgery: No Hx Cataract Extraction: No Hx Cardiac Surgery: No Hx Lung Surgery: No Hx Breast Surgery: No Hx Breast Biopsy: No Hx Abdominal Surgery: No Hx Appendectomy: No Hx Cholecystectomy: No Hx Genitourinary Surgery: No Hx Section: Yes (12 yrs ago) Anesthesia Reaction: No - PPD History Previous Implant?: Yes Documented Results: Negative w/o proof Implanted On Prior R Admission?: No PPD to be Administered?: Yes - Reproductive History Patient is a Female of Child Bearing Age (11 -55 yrs old): Yes Last Menstrual Period: 03/09/17 LMP comment: IRREGULAR LATELY Patient : No - Smoking Cessation Smoking history: Current every day smoker Have you smoked in the past 12 months: Yes Aproximately how many cigarettes per day: 10 Hx Chewing Tobacco Use: No Initiated information on smoking cessation: Yes 'Breaking Loose' booklet given: 07/01/17 - Substance & Tx. History Hx Alcohol Use: No (DENIES) Hx Substance Use: Yes (MARIJUANA/PCP) Substance Use Type: Marijuana Hx Substance Use Treatment: No (FIRST TIME IN [place] ) - Substances Abused Marijuana/Hashish Route: Smoking Frequency: Daily Amount used: 10 BLUNTS Age of first use: 12 Date of Last Use: 06/30/17 PCP Route: Smoking Frequency: Daily Amount used: 2-3 BAGS Age of first use: 31 Date of Last Use: 06/30/17 Family Disease History - Family Disease History Family Disease History: Other: Grandparent ([id number]), Father ( HIVAIDS-) Admission Physical Exam BHS - Vital Signs Vital Signs: Vital Signs - 24 hr 07/01/17 11:27 Temperature 96.1 F L Pulse Rate 83 Respiratory 18 Rate Blood Pressure 130/96 - Physical General Appearance: Yes: No Apparent Distress, Anxious HEENTM: Yes: EOMI, Normocephalic, RANJIT, Pharynx Normal Respiratory: Yes: Chest Non-Tender, Lungs Clear, Normal Breath Sounds, No Respiratory Distress Neck: Yes: No masses,lesions,Nodules, Supple, Trachea in good position Breast: Yes: Breast Exam Deferred Cardiology: Yes: Regular Rhythm, Regular Rate, S1, S2 Abdominal: Yes: Normal Bowel Sounds, Non Tender, Soft Genitourinary: Yes: Other (N/C) Back: Yes: Within Normal Limits Musculoskeletal: Yes: full range of Motion, Gait Steady Extremities: Yes: Normal Range of Motion, Non-Tender 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, Fully Oriented, Alert, Motor Strength 5/5 Integumentary: Yes: Dry, Warm Lymphatic: Yes: Within Normal Limits - Diagnostic (1) PCP abuse Current Visit: Yes Status: Chronic (2) Cannabis dependence, uncomplicated Current Visit: Yes Status: Chronic (3) Asthma Current Visit: Yes Status: Chronic Qualifiers: Asthma severity: mild intermittent Asthma complication type: uncomplicated Qualified Code(s): J45.20 - Mild intermittent asthma, uncomplicated (4) History of anemia Current Visit: Yes Status: Suspected Cleared for Admission S - Detox or Rehab Claeared for Rehab Admission: Yes S Breath Alcohol Content Breath Alcohol Content: 0 Urine Pregancy Test - Result Urine Test Results: Negative- NO Line Present Urine Drug Screen - Results Drug Screen Negative: No Urine Drug Screen Results: THC-Marijuana, PCP-Phencyclidine
[2017-07-01] MEDS ORDERED: MAG HYDROX/AL HYDROX/SIMETH 30 ML UNIT-DOSE CUP PO PRN (15:20)
[2017-07-01] MEDS ORDERED: MAGNESIUM CITRATE 300 ML BOTTLE PO PRN (15:20)
[2017-07-01] MEDS ORDERED: MENTHOL/PHENOL 1 EACH UD MM PRN (15:20)
[2017-07-01] MEDS ORDERED: guaiFENesin/D-METHORPHAN HB 10 ML UNIT-DOSE CUPS PO PRN (15:20)
[2017-07-01] MEDS ORDERED: LOPERAMIDE HCL 2 MG CAPSULE PO PRN (15:20)
[2017-07-01] MEDS ORDERED: IBUPROFEN 400 MG TABLET (FP) PO PRN (15:20)
[2017-07-01] MEDS ORDERED: P-EPHED 60MG/TRIPROLIDI 2.5MG TABLET PO PRN (15:20)
[2017-07-01] MEDS ORDERED: MAGNESIUM HYDROX 2400MG/30ML ORAL SUSPENSION 30 ML CUP PO PRN (15:20)
[2017-07-01] MEDS ORDERED: ACETAMINOPHEN 325 MG TABLET (FP) PO PRN (15:20)
[2017-07-01] MEDS ORDERED: CYCLOBENZAPRINE HCL 10 MG TABLET (FP) PO PRN (15:22)
[2017-07-01] MEDS ORDERED: PNEUMOC 13-VAL CONJ-DIP CRM/PF 0.5 ML DISP.SYRIN IM ONE (16:08)
[2017-07-01] MEDS: NICOTINE 14 MG/24 HOURS TOPICAL PATCH TD SCH (16:27)
[2017-07-01] MEDS ORDERED: PNEUMOCOCCAL 23 VACCINE 0.5 ML VIAL IM ONE (17:00)
[2017-07-01 17:57] LABS: MCH 28.9 pg (25.7-33.7); MCHC 32.6 g/dl (32.0-36.0); MEAN CELL VOLUME 88.8 fl (80-96); MEAN PLT VOLUME 9.3 fl (7.5-11.1); PLATELET COUNT 272 K/MM3 (134-434); RDW 14.6 % (11.6-15.6); WHITE BLOOD COUNT 5.9 K/mm3 (4.0-10.0)
[2017-07-01] MEDS: NICOTINE POLACRILEX 2 MG GUM BC PRN (18:13)
[2017-07-01 18:14] LABS: ALBUMIN 5.1 g/dl (3.4-5.0); ANION GAP 6 (8-16); CO2 31 mmol/L (21-32); CREATININE 0.9 mg/dL (0.55-1.02); SGOT/AST 11 U/L (15-37)
[2017-07-01 18:17] LABS: SICKLE CELL SCREEN NEGATIVE (NEGATIVE)
[2017-07-01 18:22] LABS: ALK PHOS 71 U/L (45-117); BILIRUBIN,TOTAL 0.9 mg/dL (0.2-1.0); GLUCOSE,RANDOM 83 mg/dL (74-106); SGPT/ALT 20 U/L (12-78); TOT PROT 8.3 g/dl (6.4-8.2)
--- NOTE | 2017-07-01 18:30 | PN ---
[facility] Progress Note Note: Psychiatry Attending's note (referral management liaison) : Asked to enter orders for this newly admitted patient. 31 y/o AA female with MDD - Bipolar Disorder - Schizophrenia. On seroquel 300 mg/hs + prozac 20 mg/day. Not taken for over a month.Eager to get back on medications. [facility] care [facility] in the [place]. Met briefly with patient.Good historian.At ease with interviewer. Cognitively intact.Well-related.Neatly groomed.No somatic complaints. Previous records are reviewed.Nursing note from RN Darwin is appreciated. Plan : Will initiate seroquel at the dose of 100 mg po bid and titrate. Prozac 20 mg po daily.Ordered as well. Side effects/benefits discussed with the patient. Ms Rivera consents (verbally) to follow this careplan. Support and reassurance provided to patient. Re-evaluation in AM by unit psychiatrist,Dr Campo.
[2017-07-01] MEDS: QUEtiapine FUMARATE 100 MG TABLET (FP) PO SCH (21:34)
[2017-07-01] MEDS: THIAMINE HCL 100 MG TABLET (FP) PO SCH (21:34)
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
[2017-07-01] MEDS: diphenhydrAMINE HCL 50 MG CAPSULE PO PRN (23:28)
[2017-07-02] MEDS: hydrOXYzine PAMOATE 50 MG CAPSULE (FP) PO PRN ×2 (02:18→10:04)
[2017-07-02] MEDS: NICOTINE POLACRILEX 2 MG GUM BC PRN (07:05)
[2017-07-02] MEDS: NICOTINE 14 MG/24 HOURS TOPICAL PATCH TD SCH (09:04)
[2017-07-02] MEDS: PRENATAL VITAMINS W/ FOLIC ACID TABLET (FP) PO SCH (09:05)
[2017-07-02] MEDS: FLUoxetine HCL 20 MG CAPSULE (FP) PO SCH (09:05)
[2017-07-02] MEDS: HALOPERIDOL 5 MG TABLET (FP) PO PRN ×2 (09:05→18:24)
[2017-07-02] MEDS: BENZTROPINE MESYLATE 1 MG TABLET (FP) PO PRN (09:05)
[2017-07-02] MEDS: QUEtiapine FUMARATE 100 MG TABLET (FP) PO SCH (09:06)
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
[2017-07-02 10:11] LABS: HIV 1 & 2 AB NEGATIVE
[2017-07-02 10:12] LABS: HIV 1 AGp24 NEGATIVE
--- NOTE | 2017-07-02 10:46 | EKG ---
Test Reason : Blood Pressure : / mmHG Vent. Rate : 072 BPM Atrial Rate : 072 BPM P-R Int : 116 ms QRS Dur : 092 ms QT Int : 398 ms P-R-T Axes : 040 038 043 degrees QTc Int : 435 ms SINUS RHYTHM WITH PREMATURE ATRIAL COMPLEXES OTHERWISE NORMAL ECG WHEN COMPARED WITH ECG OF 08-FEB-2017 18:14, PREMATURE ATRIAL COMPLEXES ARE NOW PRESENT Confirmed by LIZA WINTERS, MARIAMA ([id number]) on 07/02/2017 10:46:24 AM Referred By: Confirmed By:MARIAMA DE JESUS MD
[2017-07-02] MEDS ORDERED: PNEUMOCOCCAL 23 VACCINE 0.5 ML VIAL IM ONE (12:00)
[2017-07-02] MEDS ORDERED: diphenhydrAMINE HCL 25 MG CAPSULE (FP) PO PRN (13:45)
[2017-07-02 17:38] LABS: URINE APPEARANCE SLCLOUDY; URINE BILIRUBIN NEGATIVE (NEGATIVE); URINE BLOOD NEGATIVE (NEGATIVE); URINE COLOR LTYELLOW; URINE GLUCOSE (UA) NEGATIVE (NEGATIVE); URINE KETONE NEGATIVE (NEGATIVE); URINE LEUK ESTERASE NEGATIVE (NEGATIVE); URINE NITRITE NEGATIVE (NEGATIVE); URINE PROTEIN NEGATIVE (NEGATIVE); URINE UROBILINOGEN NEGATIVE mg/dL (0.2-1.0)
[2017-07-02] MEDS: QUEtiapine FUMARATE 300 MG TABLET PO SCH (21:35)
[2017-07-02] MEDS: THIAMINE HCL 100 MG TABLET (FP) PO SCH (21:35)
[2017-07-02] MEDS: diphenhydrAMINE HCL 50 MG CAPSULE PO PRN (21:35)
[2017-07-03] MEDS: BENZTROPINE MESYLATE 1 MG TABLET (FP) PO PRN ×2 (06:29→15:33)
[2017-07-03] MEDS: HALOPERIDOL 5 MG TABLET (FP) PO PRN ×2 (06:29→15:33)
[2017-07-03] MEDS: NICOTINE 14 MG/24 HOURS TOPICAL PATCH TD SCH (09:29)
[2017-07-03] MEDS: FLUoxetine HCL 20 MG CAPSULE (FP) PO SCH (09:30)
[2017-07-03] MEDS: hydrOXYzine PAMOATE 50 MG CAPSULE (FP) PO PRN (09:30)
[2017-07-03] MEDS: PRENATAL VITAMINS W/ FOLIC ACID TABLET (FP) PO SCH (09:30)
[2017-07-03] MEDS ORDERED: PT OWN MED DRAWER 7, Y5N ONE (15:33)
[2017-07-03] MEDS: diphenhydrAMINE HCL 50 MG CAPSULE PO PRN (21:19)
[2017-07-03] MEDS: THIAMINE HCL 100 MG TABLET (FP) PO SCH (21:19)
[2017-07-03] MEDS: QUEtiapine FUMARATE 300 MG TABLET PO SCH (21:19)
[2017-07-04] MEDS: PRENATAL VITAMINS W/ FOLIC ACID TABLET (FP) PO SCH (10:22)
[2017-07-04] MEDS: FLUoxetine HCL 20 MG CAPSULE (FP) PO SCH (10:22)
[2017-07-04] MEDS: NICOTINE 14 MG/24 HOURS TOPICAL PATCH TD SCH (10:23)
[2017-07-04] MEDS: hydrOXYzine PAMOATE 50 MG CAPSULE (FP) PO PRN (10:24)
[2017-07-04] MEDS: QUEtiapine FUMARATE 300 MG TABLET PO SCH (21:32)
[2017-07-04] MEDS: THIAMINE HCL 100 MG TABLET (FP) PO SCH (21:32)
[2017-07-05] MEDS: hydrOXYzine PAMOATE 50 MG CAPSULE (FP) PO PRN ×2 (06:29→21:33)
[2017-07-05] MEDS: PRENATAL VITAMINS W/ FOLIC ACID TABLET (FP) PO SCH (09:47)
[2017-07-05] MEDS: FLUoxetine HCL 20 MG CAPSULE (FP) PO SCH (09:47)
[2017-07-05] MEDS: NICOTINE 14 MG/24 HOURS TOPICAL PATCH TD SCH (09:47)
[2017-07-05] MEDS: QUEtiapine FUMARATE 300 MG TABLET PO SCH (21:32)
[2017-07-05] MEDS: THIAMINE HCL 100 MG TABLET (FP) PO SCH (21:32)
[2017-07-06] MEDS: FLUoxetine HCL 20 MG CAPSULE (FP) PO SCH (09:04)
[2017-07-06] MEDS: PRENATAL VITAMINS W/ FOLIC ACID TABLET (FP) PO SCH (09:04)
[2017-07-06] MEDS: NICOTINE 14 MG/24 HOURS TOPICAL PATCH TD SCH (09:05)
[2017-07-06] MEDS: THIAMINE HCL 100 MG TABLET (FP) PO SCH (21:23)
[2017-07-06] MEDS: QUEtiapine FUMARATE 300 MG TABLET PO SCH (21:23)
[2017-07-06] MEDS: hydrOXYzine PAMOATE 50 MG CAPSULE (FP) PO PRN (21:25)
[2017-07-06] MEDS: NICOTINE POLACRILEX 2 MG GUM BC PRN (21:25)
[2017-07-07] MEDS: FLUoxetine HCL 20 MG CAPSULE (FP) PO SCH (09:25)
[2017-07-07] MEDS: NICOTINE 14 MG/24 HOURS TOPICAL PATCH TD SCH (09:25)
[2017-07-07] MEDS: PRENATAL VITAMINS W/ FOLIC ACID TABLET (FP) PO SCH (09:25)
[2017-07-07] MEDS: NICOTINE POLACRILEX 2 MG GUM BC PRN ×2 (16:02→21:11)
[2017-07-07] MEDS: DOCUSATE SODIUM 100 MG CAPSULE (FP) PO SCH ×2 (16:02→21:10)
[2017-07-07] MEDS: hydrOXYzine PAMOATE 50 MG CAPSULE (FP) PO PRN (16:02)
[2017-07-07] MEDS: THIAMINE HCL 100 MG TABLET (FP) PO SCH (21:10)
[2017-07-07] MEDS: QUEtiapine FUMARATE 300 MG TABLET PO SCH (21:10)
[2017-07-07] MEDS: diphenhydrAMINE HCL 50 MG CAPSULE PO PRN (21:10)
[2017-07-08] MEDS: DOCUSATE SODIUM 100 MG CAPSULE (FP) PO SCH ×3 (06:58→21:32)
[2017-07-08] MEDS: PRENATAL VITAMINS W/ FOLIC ACID TABLET (FP) PO SCH (10:39)
[2017-07-08] MEDS: FLUoxetine HCL 20 MG CAPSULE (FP) PO SCH (10:39)
[2017-07-08] MEDS: NICOTINE 14 MG/24 HOURS TOPICAL PATCH TD SCH (10:40)
[2017-07-08] MEDS: THIAMINE HCL 100 MG TABLET (FP) PO SCH (21:32)
[2017-07-08] MEDS: QUEtiapine FUMARATE 300 MG TABLET PO SCH (21:32)
[2017-07-08] MEDS: hydrOXYzine PAMOATE 50 MG CAPSULE (FP) PO PRN (21:33)
[2017-07-08] MEDS: NICOTINE POLACRILEX 2 MG GUM BC PRN (21:33)
[2017-07-09] MEDS: DOCUSATE SODIUM 100 MG CAPSULE (FP) PO SCH ×3 (06:44→21:33)
[2017-07-09] MEDS: FLUoxetine HCL 20 MG CAPSULE (FP) PO SCH (09:06)
[2017-07-09] MEDS: IBUPROFEN 600 MG TABLET (FP) PO PRN (09:06)
[2017-07-09] MEDS: hydrOXYzine PAMOATE 50 MG CAPSULE (FP) PO PRN (09:06)
[2017-07-09] MEDS: NICOTINE 14 MG/24 HOURS TOPICAL PATCH TD SCH (09:06)
[2017-07-09] MEDS: PRENATAL VITAMINS W/ FOLIC ACID TABLET (FP) PO SCH (09:06)
[2017-07-09] MEDS: NICOTINE POLACRILEX 2 MG GUM BC PRN ×2 (09:07→21:34)
[2017-07-09] MEDS: THIAMINE HCL 100 MG TABLET (FP) PO SCH (21:33)
[2017-07-09] MEDS: QUEtiapine FUMARATE 300 MG TABLET PO SCH (21:33)
[2017-07-09] MEDS: diphenhydrAMINE HCL 50 MG CAPSULE PO PRN (21:34)
[2017-07-10] MEDS: DOCUSATE SODIUM 100 MG CAPSULE (FP) PO SCH ×3 (06:47→21:30)
[2017-07-10] MEDS: IBUPROFEN 600 MG TABLET (FP) PO PRN (09:04)
[2017-07-10] MEDS: NICOTINE 14 MG/24 HOURS TOPICAL PATCH TD SCH (09:04)
[2017-07-10] MEDS: FLUoxetine HCL 20 MG CAPSULE (FP) PO SCH (09:04)
[2017-07-10] MEDS: PRENATAL VITAMINS W/ FOLIC ACID TABLET (FP) PO SCH (09:04)
[2017-07-10] MEDS: hydrOXYzine PAMOATE 50 MG CAPSULE (FP) PO PRN (13:20)
[2017-07-10] MEDS: QUEtiapine FUMARATE 300 MG TABLET PO SCH (21:30)
[2017-07-10] MEDS: THIAMINE HCL 100 MG TABLET (FP) PO SCH (21:30)
[2017-07-10] MEDS: diphenhydrAMINE HCL 50 MG CAPSULE PO PRN (21:30)
[2017-07-11] MEDS: DOCUSATE SODIUM 100 MG CAPSULE (FP) PO SCH ×3 (06:31→22:03)
[2017-07-11] MEDS: PRENATAL VITAMINS W/ FOLIC ACID TABLET (FP) PO SCH (10:28)
[2017-07-11] MEDS: FLUoxetine HCL 20 MG CAPSULE (FP) PO SCH (10:29)
[2017-07-11] MEDS: NICOTINE 14 MG/24 HOURS TOPICAL PATCH TD SCH (10:29)
[2017-07-11] MEDS: hydrOXYzine PAMOATE 50 MG CAPSULE (FP) PO PRN (10:30)
[2017-07-11] MEDS: IBUPROFEN 600 MG TABLET (FP) PO PRN (10:30)
[2017-07-11] MEDS: NICOTINE POLACRILEX 2 MG GUM BC PRN (10:32)
[2017-07-11] MEDS: QUEtiapine FUMARATE 300 MG TABLET PO SCH (22:03)
[2017-07-11] MEDS: THIAMINE HCL 100 MG TABLET (FP) PO SCH (22:03)
[2017-07-11] MEDS: diphenhydrAMINE HCL 50 MG CAPSULE PO PRN (22:04)
[2017-07-12] MEDS: DOCUSATE SODIUM 100 MG CAPSULE (FP) PO SCH ×3 (07:04→21:34)
[2017-07-12] MEDS: IBUPROFEN 600 MG TABLET (FP) PO PRN (08:47)
[2017-07-12] MEDS: FLUoxetine HCL 20 MG CAPSULE (FP) PO SCH (10:10)
[2017-07-12] MEDS: PRENATAL VITAMINS W/ FOLIC ACID TABLET (FP) PO SCH (10:10)
[2017-07-12] MEDS: NICOTINE 14 MG/24 HOURS TOPICAL PATCH TD SCH (10:10)
[2017-07-12] MEDS: QUEtiapine FUMARATE 300 MG TABLET PO SCH (21:34)
[2017-07-12] MEDS: diphenhydrAMINE HCL 50 MG CAPSULE PO PRN (21:34)
[2017-07-12] MEDS: THIAMINE HCL 100 MG TABLET (FP) PO SCH (21:34)
[2017-07-12] MEDS: NICOTINE POLACRILEX 2 MG GUM BC PRN (21:35)
[2017-07-13] MEDS: DOCUSATE SODIUM 100 MG CAPSULE (FP) PO SCH ×3 (07:01→21:44)
[2017-07-13] MEDS: IBUPROFEN 600 MG TABLET (FP) PO PRN (09:34)
[2017-07-13] MEDS: PRENATAL VITAMINS W/ FOLIC ACID TABLET (FP) PO SCH (09:34)
[2017-07-13] MEDS: FLUoxetine HCL 20 MG CAPSULE (FP) PO SCH (09:34)
[2017-07-13] MEDS: NICOTINE 14 MG/24 HOURS TOPICAL PATCH TD SCH (09:34)
[2017-07-13] MEDS: hydrOXYzine PAMOATE 50 MG CAPSULE (FP) PO PRN (13:30)
[2017-07-13] MEDS: NICOTINE POLACRILEX 2 MG GUM BC PRN ×2 (13:31→21:44)
[2017-07-13] MEDS: diphenhydrAMINE HCL 50 MG CAPSULE PO PRN (21:44)
[2017-07-13] MEDS: QUEtiapine FUMARATE 300 MG TABLET PO SCH (21:44)
[2017-07-13] MEDS: THIAMINE HCL 100 MG TABLET (FP) PO SCH (21:44)
[2017-07-14] MEDS: DOCUSATE SODIUM 100 MG CAPSULE (FP) PO SCH ×3 (07:41→21:42)
[2017-07-14] MEDS: NICOTINE 14 MG/24 HOURS TOPICAL PATCH TD SCH (10:12)
[2017-07-14] MEDS: FLUoxetine HCL 20 MG CAPSULE (FP) PO SCH (10:12)
[2017-07-14] MEDS: PRENATAL VITAMINS W/ FOLIC ACID TABLET (FP) PO SCH (10:12)
[2017-07-14] MEDS: hydrOXYzine PAMOATE 50 MG CAPSULE (FP) PO PRN (13:05)
[2017-07-14] MEDS: NICOTINE POLACRILEX 2 MG GUM BC PRN ×2 (13:06→21:44)
--- NOTE | 2017-07-14 16:24 | PN ---
Psychiatric Progress Note Vital Signs: Vital Signs Period Temp Pulse Resp BP Sys/Sheppard Pulse Ox Last 24 Hr 97.4 F 81 16-18 116/78 Date of Session: 07/14/17 Chief Complaint:: Discharge visit HPI: Patient addressed Cannabis and PCP abuse/dependence comorbid with Schizoaffective disorder. ROS: Significant for history of Anemia,STD,BA. Current Medications: Active Medications Generic Name Dose Route Start Last Admin Trade Name Freq PRN Reason Stop Dose Admin Acetaminophen 650 mg 07/01/17 15:20 Tylenol - PO Q4H PRN PAIN Al Hydroxide/Mg Hydroxide 30 ml 07/01/17 15:20 Mylanta Oral Suspension - PO Q6H PRN DYSPEPSIA Benztropine Mesylate 0.5 mg 07/02/17 08:46 07/03/17 15:33 Cogentin - PO 0.5 mg BID PRN Administration AGITATION Cyclobenzaprine HCl 10 mg 07/01/17 15:22 Flexeril - PO TID PRN BACK PAIN Diphenhydramine HCl 50 mg 07/01/17 15:20 07/13/17 21:44 Benadryl - PO 50 mg HSMR1 PRN Administration INSOMNIA Diphenhydramine HCl 25 mg 07/02/17 13:45 Benadryl - PO Q6H PRN AGITATION Docusate Sodium 100 mg 07/07/17 14:45 07/14/17 13:05 Colace - PO 100 mg TID REBECCA Administration Eucalyptus/Menthol/Phenol/Sorbitol 1 each 07/01/17 15:20 Cepastat Lozenge - MM Q4H PRN SORE THROAT Fluoxetine HCl 20 mg 07/02/17 10:00 07/14/17 10:12 Prozac - PO 20 mg DAILY REBECCA Administration Guaifenesin 10 ml 07/01/17 15:20 Robitussin Dm - PO Q6H PRN COUGH Haloperidol 5 mg 07/02/17 08:45 07/03/17 15:33 Haldol - PO 5 mg TID PRN Administration AGITATION Hydroxyzine Pamoate 50 mg 07/01/17 15:20 07/14/17 13:05 Vistaril - PO 50 mg Q4H PRN Administration AGITATION Ibuprofen 600 mg 07/08/17 14:37 07/13/17 09:34 Motrin - PO 600 mg Q6H PRN Administration SEVERE PAIN Loperamide HCl 4 mg 07/01/17 15:20 Imodium - PO Q6H PRN DIARRHEA Magnesium Citrate 300 ml 07/01/17 15:20 07/06/17 13:16 Citroma - PO 300 ml Q48H PRN Administration CONSTIPATION Magnesium Hydroxide 30 ml 07/01/17 15:20 07/06/17 08:32 Milk Of Magnesia - PO 30 ml DAILY PRN Administration CONSTIPATION Nicotine 14 mg 07/01/17 16:15 07/14/17 10:12 Nicoderm Patch - TD 14 mg DAILY REBECCA Administration Nicotine Polacrilex 2 mg 07/01/17 15:20 07/14/17 13:06 Nicorette Gum - BC 2 mg Q2H PRN Administration NICOTINE REPLACEMENT RX Multivit/Folic Acid/Iron 1 tab 07/02/17 10:00 07/14/17 10:12 Vitamins (Sjr) - PO 1 tab DAILY REBECCA Administration Pseudoephedrine/Triprolidine 1 combo 07/01/17 15:20 Actifed - PO TID PRN NASAL CONGESTION Quetiapine Fumarate 300 mg 07/02/17 22:00 07/13/17 21:44 Seroquel - PO 300 mg HS REBECCA Administration Thiamine HCl 100 mg 07/01/17 22:00 07/13/17 21:44 Vitamin B1 - PO 100 mg HS REBECCA Administration Current Side Effect: No Lab tests ordered: No Lab tests reviewed: Yes Provider note:: Patient will complete this program tomorrow 07/15/17.She has met her treatment goals and will continue to address her issues on outpatient basis at [facility] rehabilitation program.Patient reports finding that Seroquel 300 mg po hs,Cogentin 0,5 mg po bid and Prozac 20 mg po daily help to cope with mood instability,depression,insomnia nand anxiety.Scripts for 30 days provided.Psychotherapy provided focusing on support system,coping utilization to maintain recovery. Patient is stable for discharge tomorrow 07/15/17. Total face to face time:: 30 Mental Status Exam - Mental Status Exam Alert and Oriented to: Time, Place, Person Cognitive Function: Grossly Intact Patient Appearance: Well Groomed Mood: Hopeful, Euthymic Affect: Mood Congruent Patient Behavior: Cooperative Speech Pattern: Clear Voice Loudness: Normal Thought Process: Goal Oriented Thought Disorder: Being Controlled Hallucinations: Denies Suicidal Ideation: Denies Homicidal Ideation: Denies Insight/Judgement: Fair Sleep: Fair Appetite: Good Muscle strength/Tone: Normal Gait/Station: Normal Psychiatric Treatment Plan - Problem List (1) Cannabis dependence, uncomplicated Current Visit: Yes (2) PCP abuse Current Visit: Yes (3) Schizoaffective disorder Current Visit: Yes
[2017-07-14] MEDS: THIAMINE HCL 100 MG TABLET (FP) PO SCH (21:42)
[2017-07-14] MEDS: QUEtiapine FUMARATE 300 MG TABLET PO SCH (21:42)
[2017-07-14] MEDS: diphenhydrAMINE HCL 50 MG CAPSULE PO PRN (21:42)
[2017-07-15] MEDS: DOCUSATE SODIUM 100 MG CAPSULE (FP) PO SCH (06:09)
[2017-07-15 06:50] VITALS: BP 105/73; PULSE 76; TEMP 97.8
[2017-07-15] MEDS: NICOTINE 14 MG/24 HOURS TOPICAL PATCH TD SCH (09:06)
[2017-07-15] MEDS: PRENATAL VITAMINS W/ FOLIC ACID TABLET (FP) PO SCH (09:06)
[2017-07-15] MEDS: FLUoxetine HCL 20 MG CAPSULE (FP) PO SCH (09:06)
[2017-07-15] MEDS ORDERED: PT OWN MED DRAWER 7, Y5N ONE (09:14)
== END 2017-07-15 10:00 | disposition home or self-care (01) | DRG 772 ==
LOC: YASAS 10:52 → Y3E 15:22
PROVIDERS: ADMIT Psychiatry & Neurology Psychiatry; ATTEND Psychiatry & Neurology Psychiatry
PROC: HZ42ZZZ Group Counseling for Substance Abuse Treatment, Cognitive-Behavioral (ICD-10-PCS; principal; 2017-07-01)
DX: F12.20 Cannabis dependence, uncomplicated (principal); F16.10 Hallucinogen abuse, uncomplicated; F25.9 Schizoaffective disorder, unspecified
CPT/HCPCS: 36415; 80053; 81003; 85027; 85660; 86593; 87389; 90732; 93005; 93010; G0009

== ENCOUNTER 2017-12-21 19:47 | Emergency (ER) | payer OTHER ==
[2017-12-21 20:03] VITALS: BP 114/85; PULSE 97; TEMP 98.4; BMI 22.1
--- NOTE | 2017-12-21 20:32 | PDOC ---
History of Present Illness - General History Source: Patient Exam Limitations: No Limitations - History of Present Illness Initial Comments: 12/21/17 21:23 The patient is a 32 year old female, with a significant past medical history of Asthma, Anxiety who presents to the emergency department with pleuritic chest pain today. Patient was using [place] and Windex while cleaning her bathroom. Patient reports sudden onset of midsternal sharp chest pain, 8/10 in severity after cleaning. Patient reports associated difficulty breathing and SOB. Patient denies any recent travel, h/o of DVT, contraceptive use. Patient denies headache or dizziness. Patient denies fever, chills, abdominal pain, nausea, vomit, diarrhea or constipation. Patient denies dysuria, frequency, urgency or hematuria. Patient denies sick contacts or recent travel. Allergies: NKA Past surgical history: None Social history: Ciggarette use (one pack daily) and Marijuana use PCP: Dr. Elo Cheney <Zainab Aguilar - Last Filed: 12/21/17 21:23> <Marisabel Poon - Last Filed: 12/21/17 23:50> - General Chief Complaint: Chest Pain Stated Complaint: CHEST PAIN Time Seen by Provider: 12/21/17 19:57 Past History <Zainab Aguilar - Last Filed: 12/21/17 21:23> - Past Medical History Anemia: Yes (NO MEDS) Asthma: Yes (MDI) Cardiac Disorders: No CVA: No COPD: No Diabetes: No GI Disorders: No Disorders: No HTN: No Hypercholesterolemia: No Kidney Stones: No Psychiatric Problems: Yes (Depression/ Bipolar/ PSTD) Seizures: No Thyroid Disease: No - Surgical History Abdominal Surgery: No Appendectomy: No Cardiac Surgery: No Cholecystectomy: No Lung Surgery: No Neurologic Surgery: No - Reproductive History PID: No - Immunization History Immunization Up to Date: Yes - Suicide/Smoking/Psychosocial Hx Smoking History: Never smoked Have you smoked in the past 12 months: No Number of Cigarettes Smoked Daily: 10 Information on smoking cessation initiated: No 'Breaking Loose' booklet given: 07/01/17 Hx Alcohol Use: No Drug/Substance Use Hx: No Substance Use Type: Marijuana Hx Substance Use Treatment: No (FIRST TIME IN [place] ) <Marisabel Poon - Last Filed: 12/21/17 23:50> - Past Medical History Allergies/Adverse Reactions: Allergies Allergy/AdvReac Type Severity Reaction Status Date / Time No Known Allergies Allergy Verified 12/21/17 20:03 Home Medications: Ambulatory Orders Fluoxetine HCl [Prozac] 20 mg PO AM 10/18/16 Quetiapine Fumarate [Seroquel] 300 mg PO HS 02/08/17 Benztropine Mesylate [Cogentin -] 0.5 mg PO BID PRN #60 tablet 07/14/17 Fluoxetine HCl [Prozac -] 20 mg PO DAILY #30 cap 07/14/17 Quetiapine Fumarate [Seroquel -] 300 mg PO HS #30 tablet 07/14/17 Albuterol Sulfate Inhaler - [Ventolin HFA Inhaler -] 1 - 2 inh PO QID PRN #1 inhaler 12/21/17 Review of Systems - Review of Systems Able to Perform ROS?: Yes Comments:: 12/21/17 21:23 GENERAL/CONSTITUTIONAL: No fever or chills. No weakness. HEAD, EYES, EARS, NOSE AND THROAT: No change in vision. No ear pain or discharge. No sore throat. GASTROINTESTINAL: No nausea, vomiting, diarrhea or constipation. GENITOURINARY: No dysuria, frequency, or change in urination. CARDIOVASCULAR: + chest pain. +shortness of breath. RESPIRATORY: No cough, wheezing, or hemoptysis. MUSCULOSKELETAL: No joint or muscle swelling or pain. No neck or back pain. SKIN: No rash NEUROLOGIC: No headache, vertigo, loss of consciousness, or change in strength/ sensation. ENDOCRINE: No increased thirst. No abnormal weight change. HEMATOLOGIC/LYMPHATIC: No anemia, easy bleeding, or history of blood clots. ALLERGIC/IMMUNOLOGIC: No hives or skin allergy. <Zainab Aguilar - Last Filed: 12/21/17 21:23> *Physical Exam - Vital Signs Last Vital Signs Temp Pulse Resp BP Pulse Ox 98.4 F 97 H 20 114/85 99 12/21/17 19:56 12/21/17 19:56 12/21/17 19:56 12/21/17 19:56 12/21/17 19:56 <Zainab Aguilar - Last Filed: 12/21/17 21:23> - Vital Signs Last Vital Signs Temp Pulse Resp BP Pulse Ox 98.4 F 97 H 20 114/85 99 12/21/17 19:56 12/21/17 19:56 12/21/17 19:56 12/21/17 19:56 12/21/17 19:56 - Physical Exam Comments: GENERAL: Awake, alert, and fully oriented, in no acute distress HEAD: No signs of trauma EYES: PERRLA, EOMI, sclera anicteric, conjunctiva clear ENT: Auricles normal inspection, hearing grossly normal, nares patent, oropharynx clear without exudates. Moist mucosa NECK: Normal ROM, supple, no lymphadenopathy, JVD, or masses LUNGS: Dec air entry B/L. Speaking full sentences. No wheezes, and no crackles HEART: Regular rate and rhythm, normal S1 and S2, no murmurs, rubs or gallops ABDOMEN: Soft, nontender, normoactive bowel sounds. No guarding, no rebound. No masses EXTREMITIES: Normal range of motion, no edema. No clubbing or cyanosis. No cords, erythema, or tenderness NEUROLOGICAL: Cranial nerves II through XII grossly intact. Normal speech, normal gait SKIN: Warm, Dry, normal turgor, no rashes or lesions noted. <Marisabel Poon - Last Filed: 12/21/17 23:50> Medical Decision Making - Medical Decision Making 12/21/17 23:38 Pt reassessed. Presently she is in her stretcher eating dinner, stating she feels better. Resp exam improved. Counseled to avoid cleaning with bleach in a small enclosed area (open a window). Refill for albuterol inhaler sent. Stable for DC home. <Marisabel Poon - Last Filed: 12/21/17 23:50> *DC/Admit/Observation/Transfer - Attestations Scribe Attestion: 12/21/17 21:23 Documentation prepared by Zainab Aguilar, acting as medical dir for Marisabel Poon MD <Zainab Aguilar - Last Filed: 12/21/17 21:23> - Discharge Dispostion Admit: No <Marisabel Poon - Last Filed: 12/21/17 23:50> Diagnosis at time of Disposition: Exposure to chemical inhalation - Discharge Dispostion Disposition: HOME Condition at time of disposition: Stable - Prescriptions Prescriptions: Albuterol Sulfate Inhaler - [Ventolin HFA Inhaler -] 1 - 2 inh PO QID PRN #1 inhaler PRN Reason: Short Of Breath/Wheezing - Referrals - Patient Instructions Printed Discharge Instructions: DI for Inhalation Injury - Post Discharge Activity
[2017-12-21] MEDS: ALBUTEROL SO4 2.5/IPRATROPIUM 0.5 INH SOL 3 ML VIAL.NEB. NEB SCH ×2 (21:48→22:05)
[2017-12-21] MEDS ORDERED: ALBUTEROL SO4 2.5/IPRATROPIUM 0.5 INH SOL 3 ML VIAL.NEB. NEB ONE (21:56)
--- NOTE | 2017-12-22 17:05 | EKG ---
Test Reason : Blood Pressure : / mmHG Vent. Rate : 095 BPM Atrial Rate : 095 BPM P-R Int : 118 ms QRS Dur : 100 ms QT Int : 366 ms P-R-T Axes : 068 052 058 degrees QTc Int : 459 ms NORMAL SINUS RHYTHM NORMAL ECG WHEN COMPARED WITH ECG OF 01-JUL-2017 16:56, PREMATURE ATRIAL COMPLEXES ARE NO LONGER PRESENT Confirmed by KIRILL SWENSON MD ([id number]) on 12/22/2017 5:04:39 PM Referred By: Confirmed By:KIRILL SWENSON MD
== END 2017-12-22 00:13 | disposition home or self-care (01) ==
LOC: SUPCPDRO 19:47 → JER 19:47
PROC: 3E0F7GC Introduction of Other Therapeutic Substance into Respiratory Tract, Via Natural or Artificial Opening (ICD-10-PCS; principal; 2017-12-21)
PROC: 3E0F7GC Introduction of Other Therapeutic Substance into Respiratory Tract, Via Natural or Artificial Opening (ICD-10-PCS; 2017-12-21)
PROC: 3E0F7GC Introduction of Other Therapeutic Substance into Respiratory Tract, Via Natural or Artificial Opening (ICD-10-PCS; 2017-12-21)
DX: T54.91XA Toxic effect of unspecified corrosive substance, accidental (unintentional), initial encounter (principal); Y92.018 Other place in single-family (private) house as the place of occurrence of the external cause; J45.909 Unspecified asthma, uncomplicated; F41.9 Anxiety disorder, unspecified; F43.10 Post-traumatic stress disorder, unspecified; F31.9 Bipolar disorder, unspecified; F32.9 Major depressive disorder, single episode, unspecified
CPT/HCPCS: 71045-TC-FY; 84703; 93005; 93010; 94640; 99282-25

== ENCOUNTER 2018-01-08 10:34 | Emergency (ER) | payer OTHER ==
[2018-01-08 10:43] VITALS: BP 155/99; PULSE 94; TEMP 97.9; BMI 22.6
--- NOTE | 2018-01-08 10:47 | PDOC ---
History of Present Illness - General Chief Complaint: Pain Stated Complaint: CHILLS, NAUSEA Time Seen by Provider: 01/08/18 10:47 History Source: Patient Exam Limitations: No Limitations - History of Present Illness Initial Comments: 01/08/18 11:08 32 year old female with pmh of depression , bipolar, asthma who presented to the hospital with 3 days history of fever, chills, sweating,N/V/D and loss of appetite. symptoms has been worsening, she vomited 4time non bloody , non bilious fluids, she reports 4 watery non bloody bowel movement yesterday and 2 today with no mucus , she denies any recent history of antibiotics. she reports headache, pulsating, 10/10 around the right eye. non radiating, she has recent stressful events in her life about child custody. pt did not eat since yesterday , reports loss of appetite and losing weight (does not know how much). pt also reports sore throat , productive cough of yellow phlegm. denies any chest pain , sob, palpitation, denies any urinary symptoms, denies any joint pain or back pain. denies any sick contact or recent travel. last time use of marijuana is yesterday. 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, smoke 1/2 pack /17 years ,denies alcohol, use marijuana DD: Marijuana withdrawal symptoms gastroenteritis common cold flue food poison tension headache Work up cbc, cmp Amylase , lipase EKG UA IV fluids 125 cc NS Protonix 40 mg once Tylenol 650 mg po once for tension headache 01/08/18 11:32 01/08/18 11:36 Past History - Past Medical History Allergies/Adverse Reactions: Allergies Allergy/AdvReac Type Severity Reaction Status Date / Time No Known Allergies Allergy Verified 01/08/18 10:43 Home Medications: Ambulatory Orders Fluoxetine HCl [Prozac] 20 mg PO AM 10/18/16 Quetiapine Fumarate [Seroquel] 300 mg PO HS 02/08/17 Benztropine Mesylate [Cogentin -] 0.5 mg PO BID PRN #60 tablet 07/14/17 Albuterol Sulfate Inhaler - [Ventolin HFA Inhaler -] 1 - 2 inh PO QID PRN #1 inhaler 12/21/17 Ondansetron HCl [Zofran] 4 mg PO Q6H PRN #12 tablet 01/08/18 Anemia: Yes (NO MEDS) Asthma: Yes (MDI) Cardiac Disorders: No CVA: No COPD: No DVT: No Diabetes: No GI Disorders: No Disorders: No HTN: No Hypercholesterolemia: No Kidney Stones: No Psychiatric Problems: Yes (Depression/ Bipolar/ PSTD) Seizures: No Thyroid Disease: No - Surgical History Abdominal Surgery: No Appendectomy: No Cardiac Surgery: No Cholecystectomy: No Lung Surgery: No Neurologic Surgery: No - Reproductive History PID: No - Immunization History Immunization Up to Date: Yes - Suicide/Smoking/Psychosocial Hx Smoking History: Never smoked Have you smoked in the past 12 months: No Number of Cigarettes Smoked Daily: 10 Information on smoking cessation initiated: Yes 'Breaking Loose' booklet given: 01/08/18 Hx Alcohol Use: No Drug/Substance Use Hx: Yes (marijuana) Substance Use Type: Marijuana Hx Substance Use Treatment: No (FIRST TIME IN [facility] [place] ) *Physical Exam - Vital Signs Last Vital Signs Temp Pulse Resp BP Pulse Ox 97.9 F 94 H 19 155/99 99 01/08/18 10:41 01/08/18 10:41 01/08/18 10:41 01/08/18 10:41 01/08/18 10:41 general : laying doen in the bed in NAD Head : NC.AT Neck:supple FROM, Lungs: CTA B/L , no wheezes, Heart: RRR, No MRG Abdoen : diffuse tenderness. + BS , soft, non distended. Legs: no edema. + 2 DP pulse Neuro: no focal deficit, normal speech Psych: Normal mood and effect. 01/08/18 15:12 Heart Score/ECG Review - Electrocardiogram EKG: Normal (NSR with QTC 445 , no st, t wave abnormalities) - Risk Factors Risk Factors Heart Score: Yes Smoking History, Yes Positive family hx of cardiac disease ED Treatment Course - LABORATORY CBC & Chemistry Diagram: 01/08/18 11:30 01/08/18 11:30 *DC/Admit/Observation/Transfer Diagnosis at time of Disposition: Gastroenteritis - Discharge Dispostion Disposition: HOME Admit: No - Prescriptions Prescriptions: Ondansetron HCl [Zofran] 4 mg PO Q6H PRN #12 tablet PRN Reason: Nausea And/Or Vomiting - Referrals Referrals: Elo Cheney [Primary Care Provider] - - Patient Instructions Printed Discharge Instructions: DI for Viral Gastroenteritis -- Adult Additional Instructions: you came to the hospital for nausea, vomiting and you have been improved with the iv fluids and anti nausea meds You will be send home with zofran 4 mg po q6hr as needed for nausea. Please take your meds as prescribed. resume all your home meds as prescribed before Emergency visit please follow up with your primary care physician within one week. if If you develop fever, chills, persistent vomiting,sever abdominal pain, or your symptoms worsen please return to emergency ned. - Post Discharge Activity
[2018-01-08] MEDS ORDERED: PANTOPRAZOLE SODIUM 40 MG VIAL IVPB ONE (11:05)
[2018-01-08] MEDS ORDERED: ACETAMINOPHEN 325 MG TABLET (FP) PO ONE (11:07)
--- NOTE | 2018-01-08 11:12 | PDOC ---
Attending Attestation - Resident Resident Name: Severino Lopez - ED Attending Attestation I have performed the following: I have examined & evaluated the patient, The case was reviewed & discussed with the resident, I agree w/resident's findings & plan, Exceptions are as noted - HPI HPI: 01/08/18 11:11 32y F no pmhx persents with 3 days of abd pain, n/v, and diarrhea. pt endorses having multiple episodes of nausea and nbnb vomiting (4 episodes this AM) as well as 2 episodes of small volume watery non bilious, non bloody stool. n orecent travel or known sick contacts The patient denies any fever, chills, abd is soft nontender suspect gastroenteritis will ck labs will erassess fliuids, antiemetic ua to r/o - Medical Decision Making 01/08/18 16:18 pt still persistently vomiting will give anothe rantiemtic if perstiently vomiting will obs for intractible vomniting 01/08/18 16:43 Patient is feeling improved I will discharge patient with PMD FU abd reassed and is soft nontender I discussed the physical exam findings, ancillary test results and final diagnoses with the patient. I answered all of the patient's questions. The patient was satisfied with the care received and felt comfortable with the discharge plan and treatment plan. The patient will call their primary care physician within 24 hours to arrange follow-up and will return to the Emergency Department with any new, persistent or worsening symptoms. Heart Score/ECG Review - ECG Impressions Comment:: 01/08/18 16:44 Twelve-lead EKG was performed and reviewed by me. There is normal sinus rhythm with a normal rate. Rate of 76 The axis is normal. short DC interval There is normal R wave progression There are no ST or T wave abnormalities.
[2018-01-08] MEDS ORDERED: SODIUM CHLORIDE 1,000 ML IV SCH (11:15)
[2018-01-08] MEDS ORDERED: PANTOPRAZOLE SODIUM 40 MG VIAL ONE (11:32)
[2018-01-08] MEDS ORDERED: ACETAMINOPHEN 325 MG TABLET (FP) ONE (11:32)
[2018-01-08 11:35] LABS: BASO % 0.5 % (0-2.0); EOS % 0.7 % (0-4.5); HEMATOCRIT 43.9 % (32.4-45.2); HEMOGLOBIN 14.4 GM/dL (10.7-15.3); LYMPH % 31.8 % (8-40); MCH 28.8 pg (25.7-33.7); MCHC 32.7 g/dl (32.0-36.0); MEAN PLT VOLUME 8.1 fl (7.5-11.1); PLATELET COUNT 350 K/MM3 (134-434); RBC 4.99 M/mm3 (3.60-5.2); RDW 13.7 % (11.6-15.6); WHITE BLOOD COUNT 6.4 K/mm3 (4.0-10.0)
[2018-01-08 11:40] LABS: URINE APPEARANCE CLOUDY; URINE BILIRUBIN NEGATIVE (NEGATIVE); URINE BLOOD NEGATIVE (NEGATIVE); URINE GLUCOSE (UA) NEGATIVE (NEGATIVE); URINE KETONE TRACE (NEGATIVE); URINE LEUK ESTERASE TRACE (NEGATIVE); URINE NITRITE NEGATIVE (NEGATIVE)
[2018-01-08 11:45] LABS: URINE COLOR DK YELLOW; URINE PROTEIN 1+ (NEGATIVE)
[2018-01-08 11:55] LABS: EPI CELLS MANY /HPF (FEW); URINE MUCUS MANY
[2018-01-08 12:05] LABS: ALBUMIN 4.7 g/dl (3.4-5.0); ANION GAP 11 (8-16); BLOOD UREA NITROGEN 12 mg/dL (7-18); CALCIUM 9.9 mg/dL (8.5-10.1); CHLORIDE 100 mmol/L (98-107); CO2 27 mmol/L (21-32); CREATININE 0.8 mg/dL (0.55-1.02); GLUCOSE,RANDOM 89 mg/dL (74-106); LIPASE 128 U/L (73-393); POTASSIUM 3.8 mmol/L (3.5-5.1); SGOT/AST 28 U/L (15-37); SGPT/ALT 53 U/L (12-78); SODIUM 138 mmol/L (136-145)
[2018-01-08 12:07] LABS: ALK PHOS 82 U/L (45-117); BILIRUBIN,TOTAL 0.8 mg/dL (0.2-1.0); TOT PROT 8.6 g/dl (6.4-8.2)
[2018-01-08 12:13] LABS: URINE BACTERIA MODERATE /hpf (NONE SEEN)
--- NOTE | 2018-01-08 12:38 | EKG ---
Test Reason : Blood Pressure : / mmHG Vent. Rate : 076 BPM Atrial Rate : 076 BPM P-R Int : 110 ms QRS Dur : 094 ms QT Int : 396 ms P-R-T Axes : 040 045 028 degrees QTc Int : 445 ms SINUS RHYTHM WITH MARKED SINUS ARRHYTHMIA WITH SHORT NH OTHERWISE NORMAL ECG WHEN COMPARED WITH ECG OF 21-DEC-2017 20:04, NONSPECIFIC T WAVE ABNORMALITY NOW EVIDENT IN INFERIOR LEADS Confirmed by DAVID WINTERS, PAULINA ([id number]) on 01/08/2018 12:38:02 PM Referred By: Confirmed By:PAULINA HERNANDEZ MD
[2018-01-08] MEDS ORDERED: ONDANSETRON 4 MG TABLET PO ONE (12:50)
[2018-01-08] MEDS ORDERED: ONDANSETRON 4 MG/2 ML VIAL ONE ×2 (13:04→15:48)
[2018-01-08] MEDS ORDERED: ONDANSETRON 4 MG/2 ML VIAL IVPUSH ONE (15:16)
[2018-01-08] MEDS ORDERED: METOCLOPRAMIDE HCL INJECTION 10 MG/2 ML VIAL IVPUSH ONE (15:50)
[2018-01-08] MEDS ORDERED: METOCLOPRAMIDE HCL INJECTION 10 MG/2 ML VIAL ONE (16:16)
== END 2018-01-08 16:53 | disposition home or self-care (01) ==
LOC: JER 10:34
PROC: 3E0337Z Introduction of Electrolytic and Water Balance Substance into Peripheral Vein, Percutaneous Approach (ICD-10-PCS; principal; 2018-01-08)
PROC: 3E033GC Introduction of Other Therapeutic Substance into Peripheral Vein, Percutaneous Approach (ICD-10-PCS; 2018-01-08)
PROC: 3E033GC Introduction of Other Therapeutic Substance into Peripheral Vein, Percutaneous Approach (ICD-10-PCS; 2018-01-08)
DX: K52.9 Noninfective gastroenteritis and colitis, unspecified (principal); J45.909 Unspecified asthma, uncomplicated; F43.10 Post-traumatic stress disorder, unspecified; F31.9 Bipolar disorder, unspecified
CPT/HCPCS: 36415; 80053; 81003; 81015; 83690; 85025; 93005; 93010; 99282-25; J7030

== ENCOUNTER 2020-01-24 10:08 | Emergency (ER) | payer OTHER ==
[2020-01-24 10:20] VITALS: BP 132/89; PULSE 60; TEMP 98.4; BMI 25.0
[2020-01-24 12:07] LABS: BASO % 0.7 % (0-2.0); EOS % 0.3 % (0-4.5); HEMATOCRIT 35.5 % (32.4-45.2); HEMOGLOBIN 11.6 GM/dL (10.7-15.3); LYMPH % 36.7 % (8-40); MCH 28.3 pg (25.7-33.7); MCHC 32.5 g/dl (32.0-36.0); MEAN CELL VOLUME 87.2 fl (80-96); MEAN PLT VOLUME 8.2 fl (7.5-11.1); MONO % 9.2 % (3.8-10.2); NEUT % 53.1 % (42.8-82.8); PLATELET COUNT 300 K/MM3 (134-434); RBC 4.08 M/mm3 (3.60-5.2); RDW 14.6 % (11.6-15.6); WHITE BLOOD COUNT 4.3 K/mm3 (4.0-10.0)
[2020-01-24 12:15] LABS: INR 1.03 (0.83-1.09); PROTHROMBIN TIME (PATIENT) 12.2 SEC (9.7-13.0)
[2020-01-24 12:22] LABS: EPI CELLS 17 /uL (0-25.1); HYALINE CASTS 4 /uL (0-3.1); URINE APPEARANCE CLOUDY; URINE BACTERIA 193 /uL (0-1359); URINE BILIRUBIN NEGATIVE (NEGATIVE); URINE COLOR DK YELLOW; URINE GLUCOSE (UA) NEGATIVE (NEGATIVE); URINE KETONE TRACE (NEGATIVE); URINE LEUK ESTERASE NEGATIVE (NEGATIVE); URINE NITRITE NEGATIVE (NEGATIVE); URINE PROTEIN 1+ (NEGATIVE); URINE RBC 520 /uL (0-23.9); URINE WBC 25 /uL (0-25.8)
[2020-01-24 12:29] LABS: HCG,QUALITATIVE URINE Negative
[2020-01-24 12:33] LABS: ALBUMIN 4.4 g/dl (3.4-5.0); BILIRUBIN,TOTAL 0.5 mg/dL (0.2-1); BLOOD UREA NITROGEN 12.7 mg/dL (7-18); CALCIUM 9.2 mg/dL (8.5-10.1); CREATININE 0.9 mg/dL (0.55-1.3); POTASSIUM 3.8 mmol/L (3.5-5.1); TOT PROT 7.5 g/dl (6.4-8.2)
== END 2020-01-24 13:50 | disposition home or self-care (01) ==
LOC: JER 10:08
DX: N93.9 Abnormal uterine and vaginal bleeding, unspecified (principal); N83.299 Other ovarian cyst, unspecified side
CPT/HCPCS: 36415; 76830-TC; 80053; 81003; 84703; 85025; 85610; 86850; 86900; 86901; 87086; 99284-25

== ENCOUNTER 2020-09-06 10:35 | Emergency (ER) | payer OTHER ==
[2020-09-06 10:44] VITALS: BMI 20.2
[2020-09-06] MEDS ORDERED: ACETAMINOPHEN 1000 MG/100 ML VIAL (NON FORMULARY) IVPB ONE (11:46)
[2020-09-06] MEDS ORDERED: SODIUM CHLORIDE 0.9% 500 ML INFUS.BAG IV ONE (11:46)
[2020-09-06] MEDS ORDERED: ONDANSETRON 4 MG/2 ML VIAL IVPUSH ONE (11:46)
[2020-09-06] MEDS ORDERED: ACETAMINOPHEN INJECTION 100 ML IVPB ONE (11:59)
[2020-09-06 12:23] LABS: BASO % 0.7 % (0-2.0); EOS % 0.6 % (0-4.5); HEMATOCRIT 38.8 % (32.4-45.2); HEMOGLOBIN 12.4 GM/dL (10.7-15.3); LYMPH % 28.9 % (8-40); MCH 27.9 pg (25.7-33.7); MEAN PLT VOLUME 9.2 fl (7.5-11.1); NEUT % 61.8 % (42.8-82.8); PLATELET COUNT 285 K/MM3 (134-434); RBC 4.46 M/mm3 (3.60-5.2); RDW 14.8 % (11.6-15.6); WHITE BLOOD COUNT 6.6 K/mm3 (4.0-10.0)
[2020-09-06 12:26] LABS: EPI CELLS 10 /uL (0-25.1); HYALINE CASTS 13 /uL (0-3.1); PH,URINE 8.5 (5.0-8.0); URINE APPEARANCE TURBID; URINE BACTERIA 5170 /uL (0-1359); URINE BILIRUBIN NEGATIVE (NEGATIVE); URINE COLOR YELLOW; URINE GLUCOSE (UA) NEGATIVE (NEGATIVE); URINE KETONE NEGATIVE (NEGATIVE); URINE LEUK ESTERASE 3+ (NEGATIVE); URINE NITRITE POSITIVE (NEGATIVE); URINE PROTEIN 2+ (NEGATIVE); URINE RBC 224 /uL (0-23.9); URINE UROBILINOGEN 0.2 mg/dL (0.2-1.0); URINE WBC 3912 /uL (0-25.8)
[2020-09-06 12:45] LABS: CHLORIDE 106 mmol/L (98-107); SODIUM 134 mmol/L (136-145)
[2020-09-06 12:48] LABS: ALBUMIN 4.1 g/dl (3.4-5.0); BLOOD UREA NITROGEN 10.2 mg/dL (7-18); CALCIUM 9.3 mg/dL (8.5-10.1); CO2 31 mmol/L (21-32); GLUCOSE,RANDOM 95 mg/dL (74-106); LIPASE 86 U/L (73-393)
[2020-09-06 12:51] LABS: CREATININE 0.9 mg/dL (0.55-1.3); SGOT/AST 66 U/L (15-37)
[2020-09-06 12:52] LABS: BILIRUBIN,TOTAL 0.7 mg/dL (0.2-1)
[2020-09-06 12:53] LABS: TOT PROT 7.7 g/dl (6.4-8.2)
[2020-09-06 12:54] LABS: ALK PHOS 80 U/L (45-117)
[2020-09-06 13:14] LABS: ANION GAP -4 MMOL/L (8-16); SGPT/ALT 19 U/L (13-61)
[2020-09-06 13:20] LABS: POTASSIUM > 10.0 mmol/L (3.5-5.1)
[2020-09-06 14:12] VITALS: BP 110/76; PULSE 86; TEMP 100.1
[2020-09-06 14:14] LABS: HIV INTERPRETATION NEGATIVE (NEGATIVE)
[2020-09-06] MEDS ORDERED: CEFTRIAXONE 1 GM/50 ML BAG ONE (15:14)
[2020-09-06] MEDS ORDERED: CEFTRIAXONE 1,000 MG in DEXTROSE 5%-WATER - 50 ML IVPB ONE (16:04)
== END 2020-09-06 16:40 | disposition home or self-care (01) ==
LOC: JER 10:35
PROC: 3E03329 Introduction of Other Anti-infective into Peripheral Vein, Percutaneous Approach (ICD-10-PCS; principal; 2020-09-06)
PROC: 3E033GC Introduction of Other Therapeutic Substance into Peripheral Vein, Percutaneous Approach (ICD-10-PCS; 2020-09-06)
DX: N30.00 Acute cystitis without hematuria (principal)
CPT/HCPCS: 36415; 80053; 81003; 83690; 84132; 84703; 85025; 87086; 87186; 87389; 99285-25; C9803; J0131; U0003

== ENCOUNTER 2021-03-30 23:21 | Emergency (ER) | payer OTHER ==
[2021-03-30] MEDS ORDERED: ONDANSETRON 4 MG/2 ML VIAL IVPUSH ONE (23:29)
[2021-03-30 23:44] VITALS: BP 114/75; PULSE 102; TEMP 97.6; BMI 22.3
[2021-03-30] MEDS ORDERED: ONDANSETRON 4 MG/2 ML VIAL ONE (23:47)
== END 2021-03-31 00:37 | disposition home or self-care (01) ==
LOC: JER 23:21
PROC: 3E033GC Introduction of Other Therapeutic Substance into Peripheral Vein, Percutaneous Approach (ICD-10-PCS; principal; 2021-03-30)
DX: R11.2 Nausea with vomiting, unspecified (principal)
CPT/HCPCS: 99284-25